=== PATIENT | male | born 1965 | race Caucasian/White ===

== ENCOUNTER 2020-03-25 15:34 | Emergency (ER) | payer OTHER ==
[~2020-03-25] VITALS: Ht 185.4 cm; Wt 99.9 kg
[~2020-03-25 15:34] MED LIST: ESOM20CA PO
[2020-03-25 15:49] VITALS: BP 115/91
--- NOTE | 2020-03-25 16:10 | NUR ---
COMMERCIAL LINES ASSISTANT: PT AMBULATORY TO ROOM FROM LOBBY
== END 2020-03-25 18:17 | disposition home or self-care (01) ==
LOC: ED 16:30
DX: S63.511A Sprain of carpal joint of right wrist, initial encounter (principal); X58.XXXA Exposure to other specified factors, initial encounter; Y93.02 Activity, running; Y92.098 Other place in other non-institutional residence as the place of occurrence of the external cause; Y99.0 Civilian activity done for income or pay
CPT/HCPCS: 29125; 99283